=== PATIENT | male | born 1945 | race Caucasian/White ===

== ENCOUNTER 2020-03-14 19:18 | Observation (INO) | payer MEDICARE ==
[2020-03-14] MEDS ORDERED: MORPHINE SULFATE 4 MG/ML SYRINGE IVP STA ×2 (19:38→20:22)
[2020-03-14] MEDS ORDERED: ONDANSETRON 4 MG/2 ML VIAL IVP STA (19:38)
[2020-03-14 19:43] LABS: Glucose,Whole Blood 137 mg/dL (75-99)
[2020-03-14 20:00] LABS: Basophils # (A) 0.1 k/uL (0-0.2); Basophils % (A) 1 %; Eosinophils # (A) 0.2 k/uL (0-0.7); Eosinophils % (A) 3 %; HCT 40.9 % (39.0-53.0); HGB 13.5 gm/dL (13.0-17.5); Lymphocytes # (A) 1.4 k/uL (1.0-4.8); Lymphocytes % (A) 19 %; MCHC 32.9 g/dL (31.0-37.0); Mean Platelet Volume 7.7; Monocytes # (A) 0.6 k/uL (0-1.0); Monocytes % (A) 8 %; Neutrophils % (A) 68 %; Platelet Count 252 k/uL (150-450); RBC 4.35 m/uL (4.30-5.90); WBC 7.3 k/uL (3.8-10.6)
--- NOTE | 2020-03-14 20:07 | ED ---
General Adult HPI <Beto Valenzuela - Last Filed: 03/14/20 21:54> - General Source: patient Mode of arrival: EMS <Missy Salvador - Last Filed: 03/14/20 22:09> - General Chief complaint: Trauma Stated complaint: Fall Time Seen by Provider: 03/14/20 19:28 - History of Present Illness Initial comments: 74-year-old male patient presents to the emergency department today for evaluation after experiencing a fall. Patient states that he was walking forward, tripped, and fell striking his face on cement. Patient does report a b rief loss of consciousness with this. States he's been having the bleeding from his nose. Patient is reporting a significant headache. Denies any blurred or double vision. Denies any nausea or vomiting. Denies dizziness. Patient is also reporting neck pain, and right mid back pain. He denies any numbness, tingling, or pain radiation down his arms. Denies any chest pain or shortness of breath. Denies any hip or leg pain. Patient was brought in via EMS, he is not given pain medication. He does report taking Xarelto. (Missy Salvador) - Related Data Home Medications Medication Instructions Recorded Confirmed Cholecalciferol [Vitamin D3 (25 1,000 unit PO DAILY 03/14/20 03/14/20 Mcg = 1000 Iu)] Escitalopram [Lexapro] 20 mg PO DAILY 03/14/20 03/14/20 Folic Acid 1 mg PO DAILY 03/14/20 03/14/20 Furosemide [Lasix] 80 mg PO DAILY 03/14/20 03/14/20 Metoprolol Succinate (ER) [Toprol 12.5 mg PO DAILY 03/14/20 03/14/20 Xl] Pantoprazole [Protonix] 40 mg PO BID 03/14/20 03/14/20 Rivaroxaban [Xarelto] 20 mg PO DAILY 03/14/20 03/14/20 Zolpidem Tartrate [Zolpidem 12.5 mg PO HS PRN 03/14/20 03/14/20 Tartrate ER] traMADol HCL/ACETAMINOPHEN 1 tab PO BID 03/14/20 03/14/20 [Ultracet 37.5-325] Allergies Allergy/AdvReac Type Severity Reaction Status Date / Time No Known Allergies Allergy Verified 03/14/20 21:55 Review of Systems ROS Other: All systems not noted in ROS Statement are negative. <Beto Valenzuela - Last Filed: 03/14/20 21:54> ROS Other: All systems not noted in ROS Statement are negative. <Missy Salvador - Last Filed: 03/14/20 22:09> ROS Statement: Those systems with pertinent positive or pertinent negative responses have been documented in the HPI. Past Medical History Past Medical History: Atrial Fibrillation, COPD Additional Past Medical History / Comment(s): pacer History of Any Multi-Drug Resistant Organisms: None Reported Past Surgical History: Back Surgery, Joint Replacement, Orthopedic Surgery Past Psychological History: No Psychological Hx Reported Smoking Status: Former smoker Past Alcohol Use History: Occasional Past Drug Use History: None Reported <PhillyTereso mckeonvinicio Hein - Last Filed: 03/14/20 22:09> General Exam General appearance: alert, in no apparent distress, other (This is a well- developed, well-nourished elderly male patient in no acute distress. Vital signs upon presentation are pulse 70, respirations 20, blood pressure 137/78, pulse ox 98% on room air.) Head exam: Present: atraumatic, normocephalic, normal inspection Eye exam: Present: PERRL, EOMI, periorbital swelling (Left superior orbital), periorbital tenderness (Left superior orbital), other (Soft tissue swelling, ecchymosis noted to the left superior orbital region. There is no evidence for hyphema or globe injury. Extraocular movements are intact with no pain or limitation.). Absent: normal appearance, scleral icterus, conjunctival injection ENT exam: Present: normal exam, normal oropharynx, mucous membranes moist Neck exam: Present: normal inspection, tenderness (Posterior cervical spinal tenderness), other (No bony step-off or deformity noted to palpation). Absent: meningismus, full ROM (C-collar in place), lymphadenopathy Respiratory exam: Present: normal lung sounds bilaterally. Absent: respiratory distress, wheezes, rales, rhonchi, stridor Cardiovascular Exam: Present: regular rate, normal rhythm, normal heart sounds. Absent: systolic murmur, diastolic murmur, rubs, gallop, clicks GI/Abdominal exam: Present: soft, normal bowel sounds, other (No surface trauma or ecchymosis noted upon visual inspection of the abdomen). Absent: distended, tenderness, guarding, rebound, rigid Extremities exam: Present: full ROM, normal capillary refill, other (There is superficial abrasion noted to the right and left anterior knee, surrounding erythema. Skin is otherwise pink, warm, dry. Cap refills less than 3 seconds. Pedal and posttibial pulses are 2+ and equal bilaterally. There is full range of motion of both knees. No bony tenderness. ). Absent: normal inspection, tenderness, pedal edema, joint swelling, calf tenderness Back exam: Present: normal inspection, paraspinal tenderness (Right thoracic paraspinal tenderness, erythema overlying this region.). Absent: vertebral tenderness Neurological exam: Present: alert, oriented X3, CN II-XII intact Expanded Speech: Present: fluid speech Cranial nerves: EOM's Intact: Normal, Nystagmus: Normal Motor strength exam: RUE: 5, LUE: 5, RLE: 5, LLE: 5 Eye Response: (4) open spontaneously Motor Response: (6) obeys commands Verbal Response: (5) oriented Adan Total: 15 Psychiatric exam: Present: normal affect, normal mood Skin exam: Present: warm, dry, intact, normal color. Absent: rash <Missy Salvador - Last Filed: 03/14/20 22:09> Course <Beto Valenzuela - Last Filed: 03/14/20 21:54> Vital Signs 03/14/20 19:31 Pulse Rate 70 Respiratory 20 Rate Blood Pressure 137/78 O2 Sat by Pulse 98 Oximetry - Reevaluation(s) Reevaluation #1: 03/14/20 21:54 PA supervision: I did personally do a [id number] evaluation the patient. Patient did fall landing on his face tripping up 1 step. He is on blood thinner. He does have clinical evidence of a nasal fracture. He did have a brief episode of LOC. He after that has been awake alert oriented history of [place] Coma Scale of 15. Clinically evidence of a nasal fracture with blood in his naris as well as evidence of edema to his nose. CAT scan does show evidence of a nasal fracture. The C-spine demonstrates degenerative changes no acute findings of fracture however he has severe neck pain 9/10 severity. No neurological deficits. I did discuss case with Dr. Clark. Patient be admitted with consultation by ENT as well as spine surgery. (Beto Valenzuela) EKG Findings - EKG Comments: EKG Findings:: EKG obtained in 1920 shows electronic ventricular pacemaker rhythm. Ventricular rate is 77, QRS duration is 166, QT 452, QTc 511. <Missy Salvador - Last Filed: 03/14/20 22:09> Medical Decision Making - Lab Data Result diagrams: 03/14/20 19:35 03/14/20 19:35 <Beto Valenzuela - Last Filed: 03/14/20 21:54> - Lab Data Result diagrams: 03/14/20 19:35 03/14/20 19:35 - Radiology Data Radiology results: report reviewed, image reviewed <Missy Salvador - Last Filed: 03/14/20 22:09> - Medical Decision Making 74-year-old male patient presented to the emergency department today for evaluation after experiencing a fall. Patient does take relative. He did strike his face on the ground. He does report a brief loss of consciousness. Physical examination did reveal bleeding from the bilateral nares with obvious deformity of the nasal bone. He has no maxillary sinus tenderness. He had left superior orbital swelling and ecchymosis. He also had cervical spinal tenderness with no bony step-off or deformity. CT brain and C-spine was obtained and was negative for acute injury. CT facial bones did show nasal bone fracture. CT chest abdomen and pelvis was negative for any acute traumatic injuries. Patient c-collar was removed, he was unable to move his head without significant pain, localized to the C3-4 level despite having received 2 doses of 4 mg of morphine. We did reapply the c-collar. My attending Dr. Valenzuela discussed with on-call trauma surgery Dr. Clark who recommends admission with consultations to orthopedics. ENT will be consulted. (Missy Salvador) - Lab Data Lab Results 03/14/20 03/14/20 03/14/20 Range/Units 19:35 19:35 19:35 WBC 7.3 (3.8-10.6) k/uL RBC 4.35 (4.30-5.90) m/uL Hgb 13.5 (13.0-17.5) gm/dL Hct 40.9 (39.0-53.0) % MCV 94.0 (80.0-100.0) fL MCH 31.0 (25.0-35.0) pg MCHC 32.9 (31.0-37.0) g/dL RDW 15.0 (11.5-15.5) % Plt Count 252 (150-450) k/uL Neutrophils % 68 % Lymphocytes % 19 % Monocytes % 8 % Eosinophils % 3 % Basophils % 1 % Neutrophils # 5.0 (1.3-7.7) k/uL Lymphocytes # 1.4 (1.0-4.8) k/uL Monocytes # 0.6 (0-1.0) k/uL Eosinophils # 0.2 (0-0.7) k/uL Basophils # 0.1 (0-0.2) k/uL PT 11.0 (9.0-12.0) sec INR 1.1 (<1.2) APTT 25.3 (22.0-30.0) sec Sodium 136 L (137-145) mmol/L Potassium 4.4 (3.5-5.1) mmol/L Chloride 104 (98-107) mmol/L Carbon Dioxide 24 (22-30) mmol/L Anion Gap 8 mmol/L BUN 23 H (9-20) mg/dL Creatinine 1.46 H (0.66-1.25) mg/dL Est GFR (CKD-EPI)AfAm 54 (>60 ml/min/1.73 sqM) Est GFR (CKD-EPI)NonAf 47 (>60 ml/min/1.73 sqM) Glucose 127 H (74-99) mg/dL POC Glucose (mg/dL) (75-99) mg/dL POC Glu Senior Lead Developer ID Plasma Lactic Acid Robin (0.7-2.0) mmol/L Calcium 9.1 (8.4-10.2) mg/dL Total Bilirubin 1.0 (0.2-1.3) mg/dL AST 29 (17-59) U/L ALT 12 (4-49) U/L Alkaline Phosphatase 74 (38-126) U/L Total Protein 7.0 (6.3-8.2) g/dL Albumin 4.1 (3.5-5.0) g/dL 03/14/20 03/14/20 Range/Units 19:35 19:41 WBC (3.8-10.6) k/uL RBC (4.30-5.90) m/uL Hgb (13.0-17.5) gm/dL Hct (39.0-53.0) % MCV (80.0-100.0) fL MCH (25.0-35.0) pg MCHC (31.0-37.0) g/dL RDW (11.5-15.5) % Plt Count (150-450) k/uL Neutrophils % % Lymphocytes % % Monocytes % % Eosinophils % % Basophils % % Neutrophils # (1.3-7.7) k/uL Lymphocytes # (1.0-4.8) k/uL Monocytes # (0-1.0) k/uL Eosinophils # (0-0.7) k/uL Basophils # (0-0.2) k/uL PT (9.0-12.0) sec INR (<1.2) APTT (22.0-30.0) sec Sodium (137-145) mmol/L Potassium (3.5-5.1) mmol/L Chloride (98-107) mmol/L Carbon Dioxide (22-30) mmol/L Anion Gap mmol/L BUN (9-20) mg/dL Creatinine (0.66-1.25) mg/dL Est GFR (CKD-EPI)AfAm (>60 ml/min/1.73 sqM) Est GFR (CKD-EPI)NonAf (>60 ml/min/1.73 sqM) Glucose (74-99) mg/dL POC Glucose (mg/dL) 137 H (75-99) mg/dL POC Glu Senior Lead Developer ID Ekaterina Soriano Plasma Lactic Acid Robin 2.4 H* (0.7-2.0) mmol/L Calcium (8.4-10.2) mg/dL Total Bilirubin (0.2-1.3) mg/dL AST (17-59) U/L ALT (4-49) U/L Alkaline Phosphatase (38-126) U/L Total Protein (6.3-8.2) g/dL Albumin (3.5-5.0) g/dL - Radiology Data CT brain C-spine without contrast is obtained. Report reviewed in its entirety. Impression by Dr. Allen shows cerebral atrophy. No acute intracranial abnormality. Spondylotic changes in the cervical spine. No fracture seen. CT facial bones without contrast was obtained. Report was reviewed in its entirety. Impression by Dr. Allen shows nasal bone fracture. Blood clot and debris in the nasopharynx. Mucosal thickening in the mastoid sinuses most likely related to bilateral chronic sinusitis. CT of the chest abdomen and pelvis is obtained report reviewed in its entirety. Impression by Dr. Allen shows no sign of acute traumatic injury of the chest abdomen pelvis. No acute fracture seen. (Missy Salvador) Disposition <Beto Valenzuela - Last Filed: 03/14/20 21:54> Decision to Admit Reason: Admit from EC Decision Date: 03/14/20 Decision Time: 22:09 <Missy Salvador - Last Filed: 03/14/20 22:09> Clinical Impression: Neck injury, Head injury, closed, with brief LOC, Nasal bone fracture Disposition: ADMITTED IP TO THIS [facility] Condition: Serious Referrals: Nonstaff,Physician [Primary Care Provider] - 1-2 days
[2020-03-14 20:13] LABS: Albumin 4.1 g/dL (3.5-5.0); Calcium 9.1 mg/dL (8.4-10.2); Potassium 4.4 mmol/L (3.5-5.1)
--- NOTE | 2020-03-14 20:22 | CT ---
EXAMINATION TYPE: CT brain anabel edgar DATE OF EXAM: 03/14/2020 COMPARISON: HISTORY: Facaial lacerations post fall injury CT DLP: 1917.1 mGycm Automated exposure control for dose reduction was used. There is some cerebral cortical atrophy. There is no mass effect nor midline shift. There is no sign of intracranial hemorrhage. Calvarium is intact. There is some mild straightening of the mid cervical spine. There is disc space narrowing at C5-6 wit h spurring of the endplates. Posterior elements are intact. There is multilevel hypertrophic cervical facet arthropathy. The skull base is intact. Mastoid sinuses are intact. Occipital bone is intact. IMPRESSION: Cerebral atrophy. No acute intracranial abnormality. Spondylotic changes in the cervical spine. No fracture seen.
--- NOTE | 2020-03-14 20:28 | CT ---
EXAMINATION TYPE: CT facial bones wo con DATE OF EXAM: 03/14/2020 COMPARISON: None HISTORY: Facaial lacerations post fall injury CT DLP: 1917.1 mGycm Automated exposure control for dose reduction was used. The mandibular ring is intact. Temporomandibular joints are intact. Zygomatic arches appear normal. T here is a fracture of the nasal bone and deviation slightly to the right side. There is opacification of the right maxillary sinus with mixed attenuation. I see no evidence of a blowout fracture. I see no focal bone destruction. There is mucosal thickening also in the posterior left maxillary sinus. Th e orbital margins are intact. There is no retro-orbital mass. I see no evidence of maxillary fracture . IMPRESSION: Nasal bone fracture. Blood clot and debris in the nasopharynx. Mucosal thickening in the maxillary sinuses most likely related to bilateral chronic sinusitis.
[2020-03-14] MEDS ORDERED: SODIUM CHLORIDE 0.9% 500 ML 500 ML IV ONE (20:36)
--- NOTE | 2020-03-14 20:38 | CT ---
EXAMINATION TYPE: CT ChestAbdPelvis w con DATE OF EXAM: 03/14/2020 COMPARISON: None HISTORY: Facaial lacerations post fall injury CT DLP: 1497 mGycm Automated exposure control for dose reduction was used. CONTRAST: Performed with IV Contrast, patient injected with 80 mL of Isovue 300. Images obtained from the thoracic inlet to the floor the pelvis with IV contrast. There is minimal subsegmental atelectasis at the left posterior lung base. Heart size is normal. Ther e is no pericardial effusion. Thoracic aorta is intact. There is no aneurysm or dissection. There are no hilar masses. There is no mediastinal adenopathy. Liver spleen appear normal. The bile ducts are nondilated. There are clips from cholecystectomy. Ther e are surgical clips probably from gastric bariatric surgery. There is no pancreatic mass. There is 1.5 cm nodule on the left adrenal gland. Kidneys show satisfactory contrast opacification. T here is no hydronephrosis. There are multiple right-sided renal calculi measuring up to 4 mm. There a re multiple bilateral renal cortical cysts that measure up to 4.7 cm. There is no evidence of solid r enal mass. Ureters are not dilated. There is no retroperitoneal adenopathy. Abdominal aorta is athero matous. Bladder distends smoothly. There is no inguinal hernia. There is no free fluid in the pelvis. There is posterior fusion surgery in the lower lumbar spine with laminectomy defect. There is fusion from T11 to S1. There is osteopenia. Spinal detail limited by metal artifact. The bony pelvis is int act. The proximal femurs appear intact. The ribs appear intact. There are old posterior left side hea led rib fractures. Shoulder joints appear intact. There is fluid collection within the anterior abdominal wall in the midline abdomen that measures 12 mm and consistent with a seroma. IMPRESSION: No sign of acute traumatic injury of the chest abdomen pelvis. No acute fracture seen.
[2020-03-14 20:54] LABS: INR 1.1 (<1.2); Partial Thromboplastin Time 25.3 sec (22.0-30.0)
[2020-03-14] MEDS ORDERED: HYDROmorphone 1 MG/ML 1 ML SYRINGE IVP STA (21:42)
[2020-03-14] MEDS ORDERED: ONDANSETRON 4 MG/2 ML VIAL IVP PRN (21:58)
[2020-03-14] MEDS ORDERED: NALOXONE 0.4 MG/ML 1 ML VIAL IV PRN (21:58)
[2020-03-15] MEDS: HYDROmorphone 1 MG/ML 1 ML SYRINGE IVP PRN ×4 (00:50→11:24)
[2020-03-15 00:56] LABS: Appearance,Urine Clear (Clear); Bilirubin,Urine Negative (Negative); Blood,Urine Negative (Negative); Color,Urine Yellow; Glucose,Urine (UA) Negative (Negative); Ketones,Urine Negative (Negative); Leukocyte Esterase,Urine Negative (Negative); Nitrite,Urine Negative (Negative); Protein,Urine Trace (Negative); Urobilinogen,Urine <2.0 mg/dL (<2.0)
[2020-03-15 00:59] LABS: Specific Gravity,Urine >1.050 (1.001-1.035)
[2020-03-15] MEDS ORDERED: CYCLOBENZAPRINE 5 MG TAB PO PRN (09:43)
[2020-03-15] MEDS ORDERED: MELOXICAM 7.5 MG TAB PO SCH (11:15)
[2020-03-15 11:46] VITALS: BP 124/74; PULSE 70; TEMP 98.1
--- NOTE | 2020-03-15 13:03 | XR ---
EXAMINATION TYPE: XR cervical spine w flex/ext DATE OF EXAM: 03/15/2020 COMPARISON: NONE HISTORY: Pain TECHNIQUE: 8 views are submitted including flexion-extension views. FINDINGS: The odontoid is intact. There are no compression deformities. The prevertebral soft tissue structur es are within normal limits. Cardiac leads are noted. Odontoid is intact there is reversal the alisson l cervical lordosis with multilevel degenerative disc disease with severe changes at C5-C6. There is multilevel facet arthropathy. Posterior spondylosis at C7-T1, C6-C7. Diffuse osteopenia. Slight anterolisthesis of C2 on C3. Appears stable on flexion and extension views . There is a slight anterolisthesis of C4 on C5 seen on flexion and extension views but not on neutra l view. Vascular calcifications in the soft tissues the neck likely related to the carotid artery. Sl ight anterolisthesis of C3 on C4 is stable on neutral and flexion views but slightly increased on ext ension views. IMPRESSION: 1. Multilevel severe degenerative disc disease and facet arthropathy. Multilevel foraminal encroachme nt is suspected. # 2. Anterolisthesis measuring approximately 1 to 2 mm C2 and C3 is stable in neutral, flexion and exte nsion views. 3. Anterolisthesis seen of C4 on C5 is only seen on flexion and extension views. Slight anterolisthes is of C3 on C4 is stable on neutral and flexion views but slightly increased on extension views.
--- NOTE | 2020-03-15 13:36 | P.GSHP ---
History of Present Illness H&P Date: 03/15/20 CHIEF COMPLAINT: Trip and fall HISTORY OF PRESENT ILLNESS: This is a 74-year-old male with past medical history of A. fib, COPD and gastric bypass. Patient is from [place] he was up here in [place] for his granddaughter's wedding tow feeder. He was entering the tow feeder juárez and tripped over a step landing face first on cement ground. Patient did report a brief couple seconds loss of consciousness with this. He had bleeding from his nose. He does report a headache. And some neck pain. D enied any blurred vision. Denies any nausea or vomiting. Denies any dizziness. Denies any chest pain or shortness of breath.He was admitted to the surgical service for trauma. computed tomography scan of the brain showing no acute intracranial abnormality. No fracture of the cervical spine. Facial CT shows a nasal bone fracture. Blood clot and debris in the nasopharynx. Mucosal thickening in the maxilla sinus most likely related to bilateral chronic sinusitis. Computed tomography scan of the chest abdomen pelvis no acute traumatic injury of the chest abdomen and pelvis. No fractures. ENT consult and orthopedic consult placed. PAST MEDICAL HISTORY: See list. PAST SURGICAL HISTORY: See list. MEDICATIONS: See list. ALLERGIES: See list. SOCIAL HISTORY: No illicit drug use. REVIEW OF SYSTEMS: CONSTITUTIONAL: Denies fever or chills. HEENT: Denies blurred vision, vision changes, or eye pain. Denies hemoptysis CARDIOVASCULAR: Denies chest pain or pressure. RESPIRATORY: No shortness of breath. GASTROINTESTINAL: See HPI for pertinent findings HEMATOLOGIC: Denies bleeding disorders. GENITOURINARY: Denies any blood in urine or increased urinary frequency. SKIN: Denies pruitis. Denies rash. PHYSICAL EXAM: VITAL SIGNS: Reviewed GENERAL: Well-developed in no acute distress. HEENT: No sclera icterus. Extraocular movements grossly intact. Moist buccal mucosa. Head is atraumatic, normocephalic. No nasal drainage.Patient does have Piyush over the bruising around the left eye. Also noted is some bruising and swelling of the nose. ABDOMEN: Soft. Nontender Nondistended. NEUROLOGIC: Alert and oriented. Cranial nerves II through XII grossly intact. LABORATORY DATA: WBC 7.3 creatinine 1.46 lactic 2.4-1.3 UA negative IMAGING: computed tomography scan of the brain showing no acute intracranial abnormality. No fracture of the cervical spine. Facial CT shows a nasal bone fracture. Blood clot and debris in the nasopharynx. Mucosal thickening in the maxilla sinus most likely related to bilateral chronic sinusitis. Computed tomography scan of the chest abdomen pelvis no acute traumatic injury of the chest abdomen and pelvis. No fractures. ASSESSMENT: 1. Trip and fall with brief episode of loss of consciousness 2. Nasal fracture 3. Elevated creatinine of 1.46. Baseline creatinine unknown. Possible acute kidney injury. Patient did receive IV fluids 4. Neck pain no evidence of fracture. 5. History of atrial fibrillation anticoagulated with Xarelto PLAN: -Consult placed for ENT and orthopedics -Patient started on regular diet -Maintained on IV fluids -Xarelto currently on hold. Physician Registration Representative note has been reviewed by physician. Signing provider agrees with the documented findings, assessment, and plan of care. Past Medical History Past Medical History: Atrial Fibrillation, COPD Additional Past Medical History / Comment(s): pacer History of Any Multi-Drug Resistant Organisms: None Reported Past Surgical History: Back Surgery, Bariatric Surgery, Joint Replacement, Orthopedic Surgery Additional Past Surgical History / Comment(s): Gastric bypass Past Anesthesia/Blood Transfusion Reactions: No Reported Reaction Past Psychological History: No Psychological Hx Reported Smoking Status: Never smoker Past Alcohol Use History: None Reported Past Drug Use History: None Reported Medications and Allergies Home Medications Medication Instructions Recorded Confirmed Type Cholecalciferol [Vitamin D3 (25 1,000 unit PO DAILY 03/14/20 03/14/20 History Mcg = 1000 Iu)] Escitalopram [Lexapro] 20 mg PO DAILY 03/14/20 03/14/20 History Folic Acid 1 mg PO DAILY 03/14/20 03/14/20 History Furosemide [Lasix] 80 mg PO DAILY 03/14/20 03/14/20 History Metoprolol Succinate (ER) [Toprol 12.5 mg PO DAILY 03/14/20 03/14/20 History Xl] Pantoprazole [Protonix] 40 mg PO BID 03/14/20 03/14/20 History Rivaroxaban [Xarelto] 20 mg PO DAILY 03/14/20 03/14/20 History Zolpidem Tartrate [Zolpidem 12.5 mg PO HS PRN 03/14/20 03/14/20 History Tartrate ER] traMADol HCL/ACETAMINOPHEN 1 tab PO BID 03/14/20 03/14/20 History [Ultracet 37.5-325] Allergies Allergy/AdvReac Type Severity Reaction Status Date / Time latex Allergy Rash/Hives Verified 03/15/20 00:27 Surgical - Exam Vital Signs Pulse Resp BP Pulse Ox 70 20 137/78 98 03/14/20 19:31 03/14/20 19:31 03/14/20 19:31 03/14/20 19:31 Results - Labs 03/14/20 19:35 03/14/20 19:35 Abnormal Lab Results - Last 24 Hours (Table) 03/14/20 03/14/20 03/14/20 Range/Units 19:35 19:35 19:41 Sodium 136 L (137-145) mmol/L BUN 23 H (9-20) mg/dL Creatinine 1.46 H (0.66-1.25) mg/dL Glucose 127 H (74-99) mg/dL POC Glucose (mg/dL) 137 H (75-99) mg/dL Plasma Lactic Acid Robin 2.4 H* (0.7-2.0) mmol/L Ur Specific Effie (1.001-1.035) Urine Protein (Negative) 03/15/20 Range/Units 00:18 Sodium (137-145) mmol/L BUN (9-20) mg/dL Creatinine (0.66-1.25) mg/dL Glucose (74-99) mg/dL POC Glucose (mg/dL) (75-99) mg/dL Plasma Lactic Acid Robin (0.7-2.0) mmol/L Ur Specific Effie >1.050 H (1.001-1.035) Urine Protein Trace H (Negative) Diabetes panel 03/14/20 Range/Units 19:35 Sodium 136 L (137-145) mmol/L Potassium 4.4 (3.5-5.1) mmol/L Chloride 104 (98-107) mmol/L Carbon Dioxide 24 (22-30) mmol/L BUN 23 H (9-20) mg/dL Creatinine 1.46 H (0.66-1.25) mg/dL Glucose 127 H (74-99) mg/dL Calcium 9.1 (8.4-10.2) mg/dL AST 29 (17-59) U/L ALT 12 (4-49) U/L Alkaline Phosphatase 74 (38-126) U/L Total Protein 7.0 (6.3-8.2) g/dL Albumin 4.1 (3.5-5.0) g/dL Calcium panel 03/14/20 Range/Units 19:35 Calcium 9.1 (8.4-10.2) mg/dL Albumin 4.1 (3.5-5.0) g/dL Pituitary panel 03/14/20 Range/Units 19:35 Sodium 136 L (137-145) mmol/L Potassium 4.4 (3.5-5.1) mmol/L Chloride 104 (98-107) mmol/L Carbon Dioxide 24 (22-30) mmol/L BUN 23 H (9-20) mg/dL Creatinine 1.46 H (0.66-1.25) mg/dL Glucose 127 H (74-99) mg/dL Calcium 9.1 (8.4-10.2) mg/dL Adrenal panel 03/14/20 Range/Units 19:35 Sodium 136 L (137-145) mmol/L Potassium 4.4 (3.5-5.1) mmol/L Chloride 104 (98-107) mmol/L Carbon Dioxide 24 (22-30) mmol/L BUN 23 H (9-20) mg/dL Creatinine 1.46 H (0.66-1.25) mg/dL Glucose 127 H (74-99) mg/dL Calcium 9.1 (8.4-10.2) mg/dL Total Bilirubin 1.0 (0.2-1.3) mg/dL AST 29 (17-59) U/L ALT 12 (4-49) U/L Alkaline Phosphatase 74 (38-126) U/L Total Protein 7.0 (6.3-8.2) g/dL Albumin 4.1 (3.5-5.0) g/dL
[2020-03-15] MEDS ORDERED: HYDROcodone/APAP 5-325MG 1 EACH TAB PO PRN (13:39)
--- NOTE | 2020-03-15 15:26 | P.DS ---
Providers Date of admission: 03/14/20 21:54 Expected date of discharge: 03/15/20 Attending physician: Klaus Clark Consults: 03/14/20 22:00 Consult Physician Routine Consulting Provider: Emmett Morales Consult Reason/Comments: Nasal bone fracture Do you want consulting provider notified?: Yes 03/15/20 08:53 Consult Physician Routine Consulting Provider: Hermilo Dutta Consult Reason/Comments: nasal fracture, neck pain from fall Do you want consulting provider notified?: Yes Primary care physician: Physician Nonstaff Hospital Course: Discharge diagnosis 1. Trip and fall with brief episode of loss of consciousness 2. Nasal fracture 3. Elevated creatinine of 1.46. Baseline creatinine unknown. Possible acute kidney injury. Patient did receive IV fluids. Recommended to hold Lasix today and tomorrow. Patient can restart Lasix on 03/17/2020. Encouraged patient to drink plenty of fluids. 4. Neck pain no evidence of fracture. 5. History of atrial fibrillation anticoagulated with Xarelto Hospital course This is a 74-year-old male with past medical history of A. fib, COPD and gastric bypass. 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 Patient did report a brief couple seconds loss of consciousness with this. He had bleeding from his nose. He does report a headache. And some neck pain. Denied any blurred vision. Denies any nausea or vomiting. Denies any dizziness. Denies any chest pain or shortness of breath.He was admitted to the surgical service for trauma. computed tomography scan of the brain showing no acute intracranial abnormality. No fracture of the cervical spine. Facial CT shows a nasal bone fracture. Blood clot and debris in the nasopharynx. Mucosal thickening in the maxilla sinus most likely related to bilateral chronic sinusitis. Computed tomography scan of the chest abdomen pelvis no acute traumatic injury of the chest abdomen and pelvis. No fractures. Patient has been seen by orthopedics. We are awaiting orthopedic final clearance. Orthopedics have ordered x-ray of the spine. Awaiting their evaluation of the x-ray and final clearance for discharge. Patient is okay to resume his Xarelto. Patient is tolerating diet. He is been up and ambulating. Pain is controlled. He is stable for discharge once cleared by orthopedics. Patient not seen by ENT specialist they do not come to the hospital for nasal fractures. Physician Manager Of Project Management note has been reviewed by physician. Signing provider agrees with the documented findings, assessment, and plan of care. Patient Condition at Discharge: Stable Plan - Discharge Summary Discharge Rx Participant: No New Discharge Prescriptions: New Cyclobenzaprine [Flexeril] 5 mg PO BID PRN #6 tab PRN Reason: Muscle Spasm Hydrocodone/Acetaminophen [[place] 5-325] 1 tab PO Q4HR PRN 3 Days #18 tab PRN Reason: Pain Continue Zolpidem Tartrate [Zolpidem Tartrate ER] 12.5 mg PO HS PRN PRN Reason: Insomnia Pantoprazole [Protonix] 40 mg PO BID Metoprolol Succinate (ER) [Toprol XL] 12.5 mg PO DAILY Folic Acid 1 mg PO DAILY Escitalopram [Lexapro] 20 mg PO DAILY Rivaroxaban [Xarelto] 20 mg PO DAILY Cholecalciferol [Vitamin D3 (25 Mcg = 1000 Iu)] 1,000 unit PO DAILY Furosemide [Lasix] 80 mg PO DAILY #0 Discontinued traMADol HCL/ACETAMINOPHEN [Ultracet 37.5-325] 1 tab PO BID Discharge Medication List Cholecalciferol [Vitamin D3 (25 Mcg = 1000 Iu)] 1,000 unit PO DAILY 03/14/20 [History] Escitalopram [Lexapro] 20 mg PO DAILY 03/14/20 [History] Folic Acid 1 mg PO DAILY 03/14/20 [History] Metoprolol Succinate (ER) [Toprol XL] 12.5 mg PO DAILY 03/14/20 [History] Pantoprazole [Protonix] 40 mg PO BID 03/14/20 [History] Rivaroxaban [Xarelto] 20 mg PO DAILY 03/14/20 [History] Zolpidem Tartrate [Zolpidem Tartrate ER] 12.5 mg PO HS PRN 03/14/20 [History] Cyclobenzaprine [Flexeril] 5 mg PO BID PRN #6 tab 03/15/20 [Rx] Furosemide [Lasix] 80 mg PO DAILY #0 03/15/20 [Rx] Hydrocodone/Acetaminophen [[place] 5-325] 1 tab PO Q4HR PRN 3 Days #18 tab 03/15/20 [Rx] Follow up Appointment(s)/Referral(s): Nonstaff,Physician [Primary Care Provider] - 1-2 days Patient Instructions/Handouts: Nasal Fracture (DC) Activity/Diet/Wound Care/Special Instructions: Okay to discharge home when cleared by orthopedics Diet: cardiac Drink plenty of water Activity: as tolerated Follow up with PCP in 1-2 days Hold Lasix today and tomorrow. Restart Lasix 03/17/20
[2020-03-15 15:34] VITALS: RESP 18
--- NOTE | 2020-03-15 17:51 | P.CNOR ---
History of Present Illness - [facility] Consult date: 03/15/20 Consult reason: neck pain History of present illness: Patient is a 74-year-old male who was admitted to [facility] yesterday evening after falling at his granddaughter's wedding recepti on. During the fall he landed on his head and face. He was brought to the hospital for further evaluation and imaging studies along with labs. Computed tomography scan of the head and neck were done along with brain. There were no acute bleeds noted. He was admitted under the trauma service, there is evidence of a nasal fracture and he continued to have discomfort in the neck. Our orthopedic team along with ENT was consulted for further evaluation. Patient was evaluated today at bedside, he was resting comfortably. A rigid c- collar was in place. The patient does live in [place], he was up visiting his family for his granddaughter's wedding. Patient denies any previous surgery involving cervical spine. Patient does admit to some discomfort along the cervical spine region. He does have a history of a lumbar fusion that was done over 10 years ago. He denies any weakness or paresthesias in the upper extremities or lower extremities. He denies any loss of bowel or bladder func tion at this time. He has no numbness in the genital region. He denies any shortness of breath, chest pain, fever or chills, nausea or vomiting. Review of Systems Constitutional: Reports as per [facility] Past Medical History Past Medical History: Atrial Fibrillation, COPD Additional Past Medical History / Comment(s): pacer History of Any Multi-Drug Resistant Organisms: None Reported Past Surgical History: Back Surgery, Bariatric Surgery, Joint Replacement, Orthopedic Surgery Additional Past Surgical History / Comment(s): Gastric bypass Past Anesthesia/Blood Transfusion Reactions: No Reported Reaction Past Psychological History: No Psychological Hx Reported Smoking Status: Never smoker Past Alcohol Use History: None Reported Past Drug Use History: None Reported Medications and Allergies Home Medications Medication Instructions Recorded Confirmed Type Cholecalciferol [Vitamin D3 (25 1,000 unit PO DAILY 03/14/20 03/14/20 History Mcg = 1000 Iu)] Escitalopram [Lexapro] 20 mg PO DAILY 03/14/20 03/14/20 History Folic Acid 1 mg PO DAILY 03/14/20 03/14/20 History Metoprolol Succinate (ER) [Toprol 12.5 mg PO DAILY 03/14/20 03/14/20 History XL] Pantoprazole [Protonix] 40 mg PO BID 03/14/20 03/14/20 History Rivaroxaban [Xarelto] 20 mg PO DAILY 03/14/20 03/14/20 History Zolpidem Tartrate [Zolpidem 12.5 mg PO HS PRN 03/14/20 03/14/20 History Tartrate ER] Cyclobenzaprine [Flexeril] 5 mg PO BID PRN #6 tab 03/15/20 Rx Furosemide [Lasix] 80 mg PO DAILY #0 03/15/20 03/14/20 Rx Hydrocodone/Acetaminophen [[place] 1 tab PO Q4HR PRN 3 Days #18 tab 03/15/20 Rx 5-325] Allergies Allergy/AdvReac Type Severity Reaction Status Date / Time latex Allergy Rash/Hives Verified 03/15/20 00:27 Physical Examination General orthopedic exam: Patient utilizing the rigid c-collar this time He has tenderness with palpation throughout the paravertebral muscles in the cervical spine, no step-off is appreciated There is no open lesions or sores, there is no significant areas of erythema or soft tissue swelling Range of motion: Patient is able to forward elevate, abduct and adduct with no difficulty of the bilateral upper extremities, strength is 5 out of 5 with all motions bilaterally Strength testing and motion of the triceps, biceps, wrist extension and wrist flexion, finger abduction and abduction are all intact with no deficits Sensation to light touch throughout the bilateral upper extremities is intact His radial pulses 2+ bilaterally Lower extremities: Logroll maneuver the bilaterally lower extremities reproduces no pain Strength testing with hip flexion, knee flexion, knee extension, plantar flexion, dorsiflexion, EHL, FHL are +5 Sensory exam to light touch throughout the bilateral lower extremities intact Soft, no tenderness with palpation Dorsalis pedis pulses are 2+ bilaterally Results - Labs Labs: Abnormal Lab Results - Last 24 Hours (Table) 03/14/20 03/14/20 03/14/20 Range/Units 19:35 19:35 19:41 Sodium 136 L (137-145) mmol/L BUN 23 H (9-20) mg/dL Creatinine 1.46 H (0.66-1.25) mg/dL Glucose 127 H (74-99) mg/dL POC Glucose (mg/dL) 137 H (75-99) mg/dL Plasma Lactic Acid Robin 2.4 H* (0.7-2.0) mmol/L Ur Specific [place] (1.001-1.035) Urine Protein (Negative) 03/15/20 Range/Units 00:18 Sodium (137-145) mmol/L BUN (9-20) mg/dL Creatinine (0.66-1.25) mg/dL Glucose (74-99) mg/dL POC Glucose (mg/dL) (75-99) mg/dL Plasma Lactic Acid Robin (0.7-2.0) mmol/L Ur Specific [place] >1.050 H (1.001-1.035) Urine Protein Trace H (Negative) H & H 03/14/20 Range/Units 19:35 Hgb 13.5 (13.0-17.5) gm/dL Hct 40.9 (39.0-53.0) % Coagulation 03/14/20 Range/Units 19:35 INR 1.1 (<1.2) Result Diagrams: 03/14/20 19:35 03/14/20 19:35 - Diagnostic results Cervical AP/lateral x-ray with flexion/extension views: report reviewed, image reviewed (Images were reviewed of the cervical spine, this to include AP and lateral flexion and extension x-rays on computed tomography scan. Images demons trated no acute fractures or dislocations. Ultimately level spondylosis noted throughout the cervical spine.) CT scan - cervical: report reviewed, image reviewed Assessment and Plan Assessment: Cervical spine strain Multilevel cervical spondylosis Status post fall from standing Other medical comorbidities Plan: I was able to discuss the case, including with physical exam findings and imaging studies my attending Dr. Dutta. No orthopedic spine surgery recommended at this time. Recommend conservative management at this time, this to include muscle relaxers, anti-inflammatories and pain medication as needed. We also recommend use of a rigid c-collar at this time. With the patient being from a stay, we recommend follow-up with an orthopedic spine surgeon in the next week for reevaluation Our office information will be provided if the patient's has to follow-up with our practice Recommended follow-up immediately to the hospital if he notices worsening symptoms, this concluded increasing pain, numbness, tingling, weakness of the bilateral upper or lower extremities. Time with Patient: Less than 30
== END 2020-03-15 16:21 | disposition home or self-care (01) ==
LOC: EC 19:18 → 6NMEDSUR 21:54
PROVIDERS: ADMIT Surgery; ATTEND Surgery
DX: S06.9X1A Unspecified intracranial injury with loss of consciousness of 30 minutes or less, initial encounter (principal); S02.2XXA Fracture of nasal bones, initial encounter for closed fracture; S00.12XA Contusion of left eyelid and periocular area, initial encounter; R94.4 Abnormal results of kidney function studies; S16.1XXA Strain of muscle, fascia and tendon at neck level, initial encounter; I48.91 Unspecified atrial fibrillation; M47.892 Other spondylosis, cervical region; G31.9 Degenerative disease of nervous system, unspecified; F02.80 Dementia in other diseases classified elsewhere, unspecified severity, without behavioral disturbance, psychotic disturbance, mood disturbance, and anxiety; J34.9 Unspecified disorder of nose and nasal sinuses; J44.9 Chronic obstructive pulmonary disease, unspecified; M48.02 Spinal stenosis, cervical region; Z79.01 Long term (current) use of anticoagulants; Z79.899 Other long term (current) drug therapy; Z79.891 Long term (current) use of opiate analgesic; Z95.0 Presence of cardiac pacemaker; Z98.890 Other specified postprocedural states; Z96.60 Presence of unspecified orthopedic joint implant; Z87.891 Personal history of nicotine dependence; Z98.84 Bariatric surgery status; Z91.040 Latex allergy status; Z98.1 Arthrodesis status; W10.9XXA Fall (on) (from) unspecified stairs and steps, initial encounter; W22.8XXA Striking against or struck by other objects, initial encounter; Y92.29 Other specified public building as the place of occurrence of the external cause; Y93.01 Activity, walking, marching and hiking
CPT/HCPCS: 96376 ×2; 96361; 96374; 96375; 99285; 36415; 93005; 80053; 83605; 85025; 85610; 85730; 81003; 72052; 72125; 70486; 70450; 71260; 74177; G0378 ×2; J2270; J2405; J1170 ×2; Q9967